=== PATIENT | male | born 1970 | race Caucasian/White ===

== ENCOUNTER → 2025-02-28 | Outpatient (CLI) | payer BC ==
[2025-02-28 12:13] LABS: HEMATOCRIT 40.9 % (42.0-52.0); MEAN CELL VOLUME 88.1 fl (80.0-94.0); MEAN CORPUSCULAR HGB 28.2 pg (27.0-31.0); MEAN PLATELET VOLUME 10.2 fl (9.6-12.3); RED BLOOD COUNT 4.64 10*6/uL (4.50-5.90); RED CELL DISTRI WIDTH 13.5 % (0-14.5); WHITE BLOOD COUNT 8.1 10*3/uL (4.8-10.8)
[2025-02-28 13:00] LABS: ALKALINE PHOSPHATASE 95 U/L (46-116); BUN 14 mg/dl (9-23); CHLORIDE 102 mmol/L (98-107); CHOLESTEROL 156 mg/dL (<200); LDL CHOLESTEROL 99 mg/dL (9-159); POTASSIUM 3.8 mmol/L (3.4-5.1); SGPT/ALT 25 U/L (5-49); TOTAL PROTEIN 7.3 gm/dL (6.0-8.0); TRIGLYCERIDES 105 mg/dl (<150)
[2025-02-28 13:01] LABS: VITAMIN D, 25-HYDROXY 7.5 ng/mL (30-100)
== END | disposition home or self-care (01) ==
LOC: LAB 11:55 → US 15:00
PROVIDERS: ATTEND Family Medicine
DX: M79.662 Pain in left lower leg (principal); L03.116 Cellulitis of left lower limb; E74.9 Disorder of carbohydrate metabolism, unspecified; E78.00 Pure hypercholesterolemia, unspecified; E55.9 Vitamin D deficiency, unspecified; Z00.00 Encounter for general adult medical examination without abnormal findings; Z12.5 Encounter for screening for malignant neoplasm of prostate; R53.82 Chronic fatigue, unspecified

== ENCOUNTER → 2025-09-05 | Outpatient (CLI) | payer BC | END | disposition home or self-care (01) | LOC: US 11:09 | PROVIDERS: ATTEND Family Medicine | DX: S92.352A Displaced fracture of fifth metatarsal bone, left foot, initial encounter for closed fracture (principal); M25.775 Osteophyte, left foot; M89.9 Disorder of bone, unspecified; M86.8X7 Other osteomyelitis, ankle and foot; M79.605 Pain in left leg; M79.89 Other specified soft tissue disorders; X58.XXXA Exposure to other specified factors, initial encounter; Y93.89 Activity, other specified; Y92.89 Other specified places as the place of occurrence of the external cause; Y99.9 Unspecified external cause status ==